=== PATIENT | female | born 1960 ===

== ENCOUNTER 2022-12-02 17:34 | Emergency (ER) | payer MEDICARE, MEDICAID ==
[2022-12-02] MEDS ORDERED: Ibuprofen 600 MG Tab PO ONE (17:40)
[2022-12-02] MEDS ORDERED: Morphine 15 MG Tab PO ONE (17:40)
[2022-12-02] MEDS ORDERED: Acetaminophen 500 MG Tab PO ONE (17:40)
[2022-12-02] MEDS ORDERED: Lidocaine 1% with EPINEPHrine 1:100,000 20 ML MDV INJECT ONE (17:40)
[2022-12-02] MEDS ORDERED: Propofol 200 MG/20 ML SDV IVPUSH PRN (18:18)
[2022-12-02] MEDS ORDERED: Ketamine 500 mg/10 ML MDV IV ONE (18:18)
[2022-12-02] MEDS ORDERED: Ondansetron 4 MG/2 ML SDV IVPUSH ONE ×2 (19:54→20:57)
[2022-12-02] MEDS ORDERED: Metoclopramide 10 MG/2 ML SDV IVPUSH ONE (22:11)
== END 2022-12-02 23:11 | disposition home or self-care (01) ==
LOC: MW.ED 17:34
DX: S43.005A Unspecified dislocation of left shoulder joint, initial encounter (principal); F17.210 Nicotine dependence, cigarettes, uncomplicated; X58.XXXA Exposure to other specified factors, initial encounter
CPT/HCPCS: 23650; 73020; 73030; 96374; 96375; 96376; 99152; 99283; A9270; J2405; J2704; J2765; J3490

== ENCOUNTER 2022-12-11 18:16 | Emergency (ER) | payer MEDICARE, MEDICAID ==
[2022-12-11] MEDS ORDERED: Ibuprofen 400 MG Tab PO ONE (20:32)
[2022-12-11] MEDS ORDERED: Acetaminophen 325 MG Tab PO ONE (20:32)
[2022-12-11] MEDS ORDERED: Morphine 15 MG Tab.ER PO ONE (20:32)
[2022-12-11] MEDS ORDERED: Morphine 15 MG Tab PO ONE (21:00)
== END 2022-12-11 22:52 | disposition home or self-care (01) ==
LOC: MW.ED 18:16
DX: T84.028A Dislocation of other internal joint prosthesis, initial encounter (principal); Z88.5 Allergy status to narcotic agent; Z88.4 Allergy status to anesthetic agent
CPT/HCPCS: 23650; 73030; 99283; A9270; 64415